=== PATIENT | female | born 1990 | race Caucasian/White ===

== ENCOUNTER 2019-03-06 16:47 | Emergency (ER) | payer MEDICAID ==
[~2019-03-06] VITALS: Ht 177.8 cm; Wt 104.5 kg
[~2019-03-06 16:47] MED LIST: BENZ1LOZ30 PO; CYCL-1 PO; ETON1VAG5 VG; HYDR-4383 PO; NAPR-1154 PO; ONDA8TAB9 PO
[2019-03-06] MEDS ORDERED: normal saline 1000ML IV soln IV ONE (17:35)
[2019-03-06] MEDS ORDERED: CefTRIAXone 2gm/D5W 50ml 50 ML IV ONE (17:35)
[2019-03-06 18:10] LABS: BASOPHILS % (AUTO) 0.2 % (0-1); EOSINOPHILS % (AUTO) 0.2 % (0-6); HEMATOCRIT 34.9 % (35.0-45.0); HEMOGLOBIN 11.9 g/dl (12.0-16.0); LYMPHOCYTES # (AUTO) 3.1 X10'3 (1.1-4.8); LYMPHOCYTES % (AUTO) 20.3 % (21-51); MEAN CORPUSCULAR HEMOGLOBIN 28.4 PG (27.0-31.0); MEAN CORPUSCULAR HGB CONC 34.2 g/dL (33.0-36.5); MEAN CORPUSCULAR VOLUME 83.2 FL (78-98); MEAN PLATELET VOLUME 9.2 FL (7.4-10.4); MONOCYTES # (AUTO) 0.8 X10'3 (0-0.9); MONOCYTES % (AUTO) 4.9 % (2-12); NEUTROPHILS # (AUTO) 11.5 X10'3 (1.8-7.7); NEUTROPHILS % (AUTO) 74.4 % (42-75); PLATELET COUNT 229 X10'3 (140-440); RED BLOOD COUNT 4.19 X10'6 (4.20-5.60); RED CELL DISTRIBUTION WIDTH 15.4 % (11.5-14.5); WHITE BLOOD COUNT 15.5 X10'3 (4.5-11.0)
[2019-03-06 18:26] LABS: PARTIAL THROMBOPLASTIN TIME 27 SECONDS (22-32)
[2019-03-06] MEDS ORDERED: ketorolac trometh. 30mg/ml inj. IV ONE (18:30)
[2019-03-06 18:34] LABS: ALANINE AMINOTRANSFERASE 52 U/L (12-78); ALBUMIN 3.8 G/DL (3.4-5.0); ALBUMIN/GLOBULIN RATIO 0.8 (1.1-1.5); ALKALINE PHOSPHATASE 78 IU/L (46-116); ANION GAP 13 (8-16); ASPARTATE AMINO TRANSFERASE 21 U/L (10-37); BILIRUBIN,TOTAL 0.3 MG/DL (0.1-1.0); BLOOD UREA NITROGEN 7 MG/DL (7-18); BUN/CREATININE RATIO 8.1 (6.6-38.0); CALCIUM 10.1 MG/DL (8.5-10.1); CHLORIDE 109 MMOL/L (99-107); CREATININE 0.86 MG/DL (0.40-0.90); GLUCOSE 96 MG/DL (70-104); POTASSIUM 3.9 MMOL/L (3.5-5.1); SODIUM 145 MMOL/L (135-145); TOTAL CARBON DIOXIDE 23.1 MMOL/L (24-32); TOTAL PROTEIN 8.6 G/DL (6.4-8.2); eGFR 78 ML/MIN
--- NOTE | 2019-03-06 18:48 | NUR ---
PER KHADRA HERRERA PT DOESN'T MEET CRITERIA FOR R/O MENNINGITIS DUE TO NEGATIVE H&P EXAM. DO TO LABS WE CAN GIVE 2L NS INSTEAD OF 3.5L NS.
[2019-03-06] MEDS ORDERED: CEPH250T PO (19:01)
[2019-03-06] MEDS ORDERED: ALBU6.7H9 INH (19:01)
[2019-03-06] MEDS ORDERED: PRED20TA PO (19:01)
[2019-03-06] MEDS ORDERED: BENZ-38 PO (19:01)
[2019-03-06 19:12] VITALS: BP 134/90
== END 2019-03-06 19:20 | disposition home or self-care (01) ==
LOC: ER 16:48
DX: J20.9 Acute bronchitis, unspecified (principal); G89.29 Other chronic pain; F10.99 Alcohol use, unspecified with unspecified alcohol-induced disorder; R79.1 Abnormal coagulation profile; Z98.890 Other specified postprocedural states; Z56.0 Unemployment, unspecified; Z88.5 Allergy status to narcotic agent; Z88.6 Allergy status to analgesic agent; Z79.899 Other long term (current) drug therapy; Y90.9 Presence of alcohol in blood, level not specified
CPT/HCPCS: 36415; 71045; 80053; 83605; 84145; 85025; 85610; 85730; 87040; 96365; 96375; 99284; J0696; J1885; J7030

== ENCOUNTER 2019-06-22 08:40 | Day surgery (SDC) | payer MEDICAID ==
[2019-06-19 11:54] LABS: BASOPHILS % (AUTO) 0.3 % (0-1); EOSINOPHILS # (AUTO) 0.1 X10'3 (0-0.9); LYMPHOCYTES # (AUTO) 4.2 X10'3 (1.1-4.8); LYMPHOCYTES % (AUTO) 40.7 % (21-51); MEAN CORPUSCULAR HEMOGLOBIN 28.4 PG (27.0-31.0); MEAN CORPUSCULAR HGB CONC 34.2 g/dL (33.0-36.5); MONOCYTES # (AUTO) 0.6 X10'3 (0-0.9); MONOCYTES % (AUTO) 5.5 % (2-12); NEUTROPHILS # (AUTO) 5.4 X10'3 (1.8-7.7); NEUTROPHILS % (AUTO) 52.5 % (42-75); PRE OP HEMATOCRIT 34.7 % (35.0-45.0); PRE OP HEMOGLOBIN 11.9 g/dL (12.0-16.0); PRE OP PLATELET COUNT 228 X10'3 (140-440); RED BLOOD COUNT 4.18 X10'6 (4.20-5.60); RED CELL DISTRIBUTION WIDTH 14.9 % (11.5-14.5)
[2019-06-19 12:09] LABS: HCG SERUM QL NEGATIVE
[2019-06-19 12:10] LABS: ALBUMIN 3.5 G/DL (3.4-5.0); ALBUMIN/GLOBULIN RATIO 0.9 (1.1-1.5); ALKALINE PHOSPHATASE 69 IU/L (46-116); BLOOD UREA NITROGEN 7 MG/DL (7-18); CALCIUM 8.6 MG/DL (8.5-10.1); CHLORIDE 107 MMOL/L (99-107); CREATININE 0.88 MG/DL (0.40-0.90); PRE OP ALT 62 U/L (30-65); PRE OP ANION GAP 9 (8-16); PRE OP AST 30 U/L (10-37); PRE OP BILIRUB, TOTAL 0.2 MG/DL (0.0-1.0); PRE OP GLUCOSE 102 MG/DL (70-104); PRE OP SODIUM 140 MMOL/L (135-145); TOTAL CARBON DIOXIDE 23.9 MMOL/L (24-32); TOTAL PROTEIN 7.3 G/DL (6.4-8.2); eGFR 76 ML/MIN
[~2019-06-22] VITALS: Ht 177.8 cm; Wt 122.0 kg
[2019-06-22] VITALS (11 sets, daily range): BP systolic 109–160; BP diastolic 58–79
[~2019-06-22 08:40] MED LIST changes: -BENZ1LOZ30 PO; -CYCL-1 PO; -ETON1VAG5 VG; -HYDR-4383 PO; -NAPR-1154 PO; +NO HOME MEDS; -ONDA8TAB9 PO; +famotidine 10mg tablet PO ONE; +ringers solution, lacted 1,000 ML IV SCH
[2019-06-22] MEDS ORDERED: BUPIVAcaine/PF 2.5 mg/ml (0.25%) 30ml vial ONE (09:30)
[2019-06-22] MEDS ORDERED: sevoflurane 250ml liquid IH ONE (10:21)
[2019-06-22] MEDS ORDERED: fentaNYL/PF 50MCG/1 ML 2ML syringe ONE ×2 (10:32→11:35)
[2019-06-22] MEDS ORDERED: midazolam 2 mg/2 ml injection ONE (10:32)
[2019-06-22] MEDS ORDERED: glycopyrrolate 0.2mg/ml inj ONE (11:21)
[2019-06-22] MEDS ORDERED: neostigmine methylsulfate 1 MG/ML 10ml vial ONE (11:21)
[2019-06-22] MEDS ORDERED: dexamethasone sod phosphate 4mg/ml inj. ONE (11:21)
[2019-06-22] MEDS ORDERED: propofol inj 20 ML IV ONE (11:21)
[2019-06-22] MEDS ORDERED: ondansetron/PF 4mg/2ml inj ONE (11:21)
[2019-06-22] MEDS ORDERED: rocuronium 10mg/ml inj IV ONE (11:21)
[2019-06-22] MEDS ORDERED: LIDOcaine 2% (20mg/ml) 5ml vial ONE (11:21)
--- NOTE | 2019-06-22 11:35 | NUR ---
Received from OR via [facility] , accompanied by Anesthesiologist DR WORKMAN and report given by Anesthesiolgist. PT DROWSY AND AROUSES EASILY. SKIN PINK AND WARM, PIV 20 GUAGE KENNEY PATENT RUNNING LR AT 100 ML/HR. ABDOMEN SOFT WITH 3 BANDAIDS CLEAN DRY AND INTACT. C/O PAIN OF 8.
[2019-06-22] MEDS ORDERED: morphine 4 MG/ML inj SYRINge IV PRN ×2 (11:45)
[2019-06-22] MEDS ORDERED: proCHLORperazine 10 MG/2 ml inj IV PRN (11:45)
[2019-06-22] MEDS ORDERED: meperidine/PF 25mg/ml syringe IV PRN ×2 (11:45)
[2019-06-22] MEDS ORDERED: ondansetron/PF 4mg/2ml inj IV PRN (11:45)
[2019-06-22] MEDS ORDERED: ringers solution, lacted 1,000 ML IV SCH (11:45)
[2019-06-22] MEDS ORDERED: morphine 4 MG/ML inj SYRINge ONE (11:53)
[2019-06-22] MEDS: meperidine/PF 25mg/ml syringe IV PRN ×2 (12:23→12:52)
--- NOTE | 2019-06-22 13:15 | NUR ---
PT DISCHARGED TO HOME IN PERSONAL VEHICLE TO UNCLE. OUT VIA WHEELCHAIR WITH PAIN CONTROLLED TO REASONABLE LEVEL, DRESSINGS DRY AND INTACT. ALL DISCHARGE INSTRUCTIONS GIVEN TO PATIENT, VERBALIZED UNDERSTANDING.LUCAS DESAI D/GEORGES CATHETER TIP INTACT Addendum: 06/22/19 at 1413 by Regina Dominique RN Amended: Links added.
== END 2019-06-22 13:15 | disposition home or self-care (01) ==
LOC: PAS 08:40
PROVIDERS: ATTEND Obstetrics & Gynecology
DX: Z30.2 Encounter for sterilization (principal); D64.9 Anemia, unspecified; G43.909 Migraine, unspecified, not intractable, without status migrainosus; M19.90 Unspecified osteoarthritis, unspecified site; E66.9 Obesity, unspecified; Z68.38 Body mass index [BMI] 38.0-38.9, adult; Z88.5 Allergy status to narcotic agent; Z91.018 Allergy to other foods; Z79.899 Other long term (current) drug therapy; Z98.890 Other specified postprocedural states
CPT/HCPCS: 36415; 58661; 80053; 82948; 84703; 85025; 86885; 86900; 86901; J1100; J2001; J2175; J2250; J2270; J2405; J2704; J2710; J3010; J3490; A4618; A6250; J7120

== ENCOUNTER 2019-08-31 19:17 | Emergency (ER) | payer MEDICAID ==
[~2019-08-31] VITALS: Ht 177.8 cm; Wt 107.1 kg
[~2019-08-31 19:17] MED LIST changes: -famotidine 10mg tablet PO ONE; -ringers solution, lacted 1,000 ML IV SCH
--- NOTE | 2019-08-31 19:39 | NUR ---
PT UNABLE TO GIVE URINE SAMPLE AT THIS TIME. WILL CONTINUE TO ENCOURAGE VOIDING.
[2019-08-31 19:53] LABS: BASOPHILS # (AUTO) 0.1 X10'3 (0-0.2); BASOPHILS % (AUTO) 0.5 % (0-1); EOSINOPHILS # (AUTO) 0.1 X10'3 (0-0.9); EOSINOPHILS % (AUTO) 0.7 % (0-6); HEMATOCRIT 33.8 % (35.0-45.0); HEMOGLOBIN 11.4 g/dl (12.0-16.0); LYMPHOCYTES # (AUTO) 4.7 X10'3 (1.1-4.8); LYMPHOCYTES % (AUTO) 36.1 % (21-51); MEAN CORPUSCULAR HEMOGLOBIN 29.2 PG (27.0-31.0); MEAN CORPUSCULAR HGB CONC 33.7 g/dL (33.0-36.5); MEAN CORPUSCULAR VOLUME 86.7 FL (78-98); MEAN PLATELET VOLUME 8.6 FL (7.4-10.4); MONOCYTES # (AUTO) 0.6 X10'3 (0-0.9); MONOCYTES % (AUTO) 4.4 % (2-12); NEUTROPHILS # (AUTO) 7.6 X10'3 (1.8-7.7); NEUTROPHILS % (AUTO) 58.3 % (42-75); PLATELET COUNT 247 X10'3 (140-440); RED CELL DISTRIBUTION WIDTH 15.7 % (11.5-14.5)
[2019-08-31 20:06] LABS: ALANINE AMINOTRANSFERASE 57 U/L (12-78); ALBUMIN 3.6 G/DL (3.4-5.0); ALBUMIN/GLOBULIN RATIO 0.9 (1.1-1.5); ALKALINE PHOSPHATASE 80 IU/L (46-116); ANION GAP 9 (8-16); ASPARTATE AMINO TRANSFERASE 32 U/L (10-37); BILIRUBIN,TOTAL 0.4 MG/DL (0.1-1.0); BLOOD UREA NITROGEN 13 MG/DL (7-18); BUN/CREATININE RATIO 11.1 (6.6-38.0); CHLORIDE 102 MMOL/L (99-107); CREATININE 1.17 MG/DL (0.40-0.90); GLUCOSE 97 MG/DL (70-104); LIPASE 72 U/L (73-393); POTASSIUM 3.6 MMOL/L (3.5-5.1); SODIUM 140 MMOL/L (135-145); TOTAL CARBON DIOXIDE 29.5 MMOL/L (24-32); TOTAL PROTEIN 7.8 G/DL (6.4-8.2); eGFR 55 ML/MIN
[2019-08-31] MEDS ORDERED: normal saline 1000ML IV soln IVB ONE (20:30)
[2019-08-31] MEDS ORDERED: ondansetron/PF 4mg/2ml inj IV ONE (20:30)
[2019-08-31] MEDS: morphine 2 MG/ML inj. syringe IV PRN ×2 (20:44→22:09)
[2019-08-31] MEDS ORDERED: proCHLORperazine 10 MG/2 ml inj IM ONE (21:45)
[2019-08-31] MEDS ORDERED: ketorolac tromethamine 15mg/ml inj. IV ONE (21:45)
[2019-08-31 22:09] LABS: CLARITY,URINE CLEAR (Clear); COLOR,URINE YELLOW (Yellow); GLUCOSE, URINE NEGATIVE (Neg); KETONES,URINE NEGATIVE (Neg); LEUKOCYTE ESTERASE ,URINE NEGATIVE (Neg); NITRITES, URINE NEGATIVE (Neg); OCCULT BLOOD,URINE NEGATIVE (Neg); PH,URINE 6.5 (4.8-8.0); PROTEIN,URINE NEGATIVE (Neg); URINE HCG NEGATIVE (NEG); UROBILINOGEN,URINE 0.2 E.U/dL (0.2-1.0)
[2019-08-31 22:10] LABS: UA COLLECTION TYPE CLN CATCH MIDSTREAM
[2019-08-31 22:13] VITALS: BP 131/83
[2019-08-31] MEDS ORDERED: MAGN296S70 PO (22:23)
== END 2019-08-31 22:34 | disposition home or self-care (01) ==
LOC: ER 19:17
DX: K59.00 Constipation, unspecified (principal); R10.31 Right lower quadrant pain; E66.9 Obesity, unspecified; G89.29 Other chronic pain; Z56.0 Unemployment, unspecified; Z98.890 Other specified postprocedural states; Z88.5 Allergy status to narcotic agent; Z88.6 Allergy status to analgesic agent
CPT/HCPCS: 36415; 74176; 80053; 81003; 81025; 83690; 85025; 96372; 96374; 96375; 96376; 99285; J0780; J1885; J2270; J2405; J7030

== ENCOUNTER 2020-03-24 16:25 | Emergency (ER) | payer MEDICAID ==
[~2020-03-24] VITALS: Ht 177.8 cm; Wt 125.0 kg
[~2020-03-24 16:25] MED LIST changes: +MAGN296S70 PO
[2020-03-24 16:34] VITALS: BP 155/111
[2020-03-24] MEDS ORDERED: proparacaine 0.5% ophthalmic drops 15ml EACHEYE ONE (17:05)
== END 2020-03-24 18:12 | disposition home or self-care (01) ==
LOC: ER 16:26
DX: H57.12 Ocular pain, left eye (principal); G89.29 Other chronic pain; Z87.81 Personal history of (healed) traumatic fracture; Z56.0 Unemployment, unspecified
CPT/HCPCS: 99282

== ENCOUNTER 2020-06-12 17:13 | Emergency (ER) | payer MEDICAID ==
[~2020-06-12] VITALS: Ht 177.8 cm; Wt 118.4 kg
[2020-06-12 18:02] VITALS: BP 165/90
[2020-06-12] MEDS ORDERED: ketorolac trometh inj. 60 MG/2 ML VIAL IM ONE (18:10)
[2020-06-12] MEDS ORDERED: HYDROcodone/acetaminophen 10/325mg tab PO ONE (18:10)
== END 2020-06-12 20:03 | disposition home or self-care (01) ==
LOC: ER 17:13
DX: S63.502A Unspecified sprain of left wrist, initial encounter (principal); M25.532 Pain in left wrist; G89.29 Other chronic pain; Z98.890 Other specified postprocedural states; Z72.89 Other problems related to lifestyle; Z56.0 Unemployment, unspecified; Z88.8 Allergy status to other drugs, medicaments and biological substances; Z88.6 Allergy status to analgesic agent; Z79.899 Other long term (current) drug therapy; W18.39XA Other fall on same level, initial encounter; Y93.89 Activity, other specified; Y92.89 Other specified places as the place of occurrence of the external cause; Y99.8 Other external cause status
CPT/HCPCS: 29125; 73110; 96372; 99283; J1885

== ENCOUNTER 2020-06-13 09:24 | Emergency (ER) | payer MEDICAID ==
[~2020-06-13] VITALS: Ht 177.8 cm; Wt 118.6 kg
--- NOTE | 2020-06-13 09:55 | NUR ---
Pt seen, assessed, and treated by provider prior to block inspector. See MSE notes.
== END 2020-06-13 09:56 | disposition home or self-care (01) ==
LOC: ER 09:25
DX: S63.502A Unspecified sprain of left wrist, initial encounter (principal); M25.532 Pain in left wrist; G89.29 Other chronic pain; Z98.890 Other specified postprocedural states; Z72.89 Other problems related to lifestyle; Z56.0 Unemployment, unspecified; Z88.8 Allergy status to other drugs, medicaments and biological substances; Z88.6 Allergy status to analgesic agent; Z79.899 Other long term (current) drug therapy; W19.XXXA Unspecified fall, initial encounter; Y93.89 Activity, other specified; Y92.89 Other specified places as the place of occurrence of the external cause; Y99.8 Other external cause status
CPT/HCPCS: 29125; 99283

== ENCOUNTER 2020-12-10 10:50 | Emergency (ER) | payer MEDICAID ==
[~2020-12-10] VITALS: Ht 177.8 cm; Wt 109.0 kg
[2020-12-10 10:51] VITALS: BP 143/75
== END 2020-12-10 13:00 | disposition home or self-care (01) ==
LOC: ER 10:51
DX: M94.0 Chondrocostal junction syndrome [Tietze] (principal); J04.0 Acute laryngitis; G89.29 Other chronic pain; Z87.81 Personal history of (healed) traumatic fracture; Z98.890 Other specified postprocedural states; Z72.89 Other problems related to lifestyle; Z56.0 Unemployment, unspecified; Z79.899 Other long term (current) drug therapy; Z88.8 Allergy status to other drugs, medicaments and biological substances
CPT/HCPCS: 71045; 99283

== ENCOUNTER 2021-07-15 17:55 | Emergency (ER) | payer MEDICAID ==
[~2021-07-15] VITALS: Ht 177.8 cm; Wt 100.5 kg
[~2021-07-15 17:55] MED LIST changes: +LIDOcaine 1% 30ml preserv. free vial ONE
[2021-07-15 18:28] VITALS: BP 150/109
[2021-07-15] MEDS ORDERED: rabies vaccine (PCEC)/PF 2.5 unit kit IMVAC ONE (19:35)
[2021-07-15] MEDS ORDERED: TETanus/Pertussis (Acell)/Diphther VAC/PF (Tdap-Adult) 0.5ml syringe IMVAC ONE (19:35)
[2021-07-15] MEDS ORDERED: AMOX-117 PO (19:45)
[2021-07-15] MEDS ORDERED: ibuprofen tablet 400 MG TABLET PO ONE (21:20)
--- NOTE | 2021-07-15 21:22 | NUR ---
6 sutures placed by kiersten.
== END 2021-07-15 21:35 | disposition home or self-care (01) ==
LOC: ER 17:56
DX: S01.311A Laceration without foreign body of right ear, initial encounter (principal); G89.29 Other chronic pain; F17.200 Nicotine dependence, unspecified, uncomplicated; Z56.0 Unemployment, unspecified; Z98.890 Other specified postprocedural states; Z88.8 Allergy status to other drugs, medicaments and biological substances; Z79.2 Long term (current) use of antibiotics; Z20.3 Contact with and (suspected) exposure to rabies; Z79.899 Other long term (current) drug therapy; W54.0XXA Bitten by dog, initial encounter; Y93.89 Activity, other specified; Y92.89 Other specified places as the place of occurrence of the external cause; Y99.8 Other external cause status
CPT/HCPCS: 12011; 90471; 90472; 90675; 99284; J3490

== ENCOUNTER 2021-07-18 11:01 | Emergency (ER) | payer MEDICAID ==
[~2021-07-18] VITALS: Ht 177.8 cm; Wt 100.0 kg
[~2021-07-18 11:01] MED LIST changes: +AMOX-117 PO; -LIDOcaine 1% 30ml preserv. free vial ONE
[2021-07-18 11:20] VITALS: BP 130/76
[2021-07-18] MEDS ORDERED: rabies vaccine (PCEC)/PF 2.5 unit kit IMVAC ONE (11:25)
[2021-07-18] MEDS ORDERED: ACET-3068 PO (11:52)
== END 2021-07-18 12:11 | disposition home or self-care (01) ==
LOC: ER 11:01
DX: S00.80XA Unspecified superficial injury of other part of head, initial encounter (principal); R51.9 Headache, unspecified; Z20.3 Contact with and (suspected) exposure to rabies; Z23 Encounter for immunization; G89.29 Other chronic pain; Z98.890 Other specified postprocedural states; Z56.0 Unemployment, unspecified; Z88.8 Allergy status to other drugs, medicaments and biological substances; Z88.6 Allergy status to analgesic agent; Z79.2 Long term (current) use of antibiotics; Z79.899 Other long term (current) drug therapy; X58.XXXA Exposure to other specified factors, initial encounter; Y93.89 Activity, other specified; Y92.89 Other specified places as the place of occurrence of the external cause; Y99.8 Other external cause status
CPT/HCPCS: 90471; 90675; 99283

== ENCOUNTER 2021-07-22 11:11 | Emergency (ER) | payer MEDICAID ==
[~2021-07-22] VITALS: Ht 177.8 cm; Wt 100.0 kg
[~2021-07-22 11:11] MED LIST changes: +ACET-3068 PO
[2021-07-22 11:28] VITALS: BP 149/81
== END 2021-07-22 13:29 | disposition left against medical advice (07) ==
LOC: ER 11:12
DX: R51.9 Headache, unspecified (principal); Z53.21 Procedure and treatment not carried out due to patient leaving prior to being seen by health care provider

== ENCOUNTER 2021-11-03 22:11 | Emergency (ER) | payer MEDICAID, OTHER ==
[~2021-11-03] VITALS: Ht 177.8 cm; Wt 100.0 kg
[~2021-11-03 22:11] MED LIST changes: -ACET-3068 PO; -AMOX-117 PO
[2021-11-03] MEDS ORDERED: celeCOXIB 100mg capsule PO SCH (23:55)
[2021-11-04] MEDS ORDERED: CELE-193 PO
== END 2021-11-04 00:18 | disposition home or self-care (01) ==
LOC: ER 22:12
DX: S90.31XA Contusion of right foot, initial encounter (principal); M79.671 Pain in right foot; G89.29 Other chronic pain; Z98.890 Other specified postprocedural states; Z72.89 Other problems related to lifestyle; Z56.0 Unemployment, unspecified; Z88.8 Allergy status to other drugs, medicaments and biological substances; Z88.6 Allergy status to analgesic agent; Z79.899 Other long term (current) drug therapy; X58.XXXA Exposure to other specified factors, initial encounter; Y93.89 Activity, other specified; Y92.89 Other specified places as the place of occurrence of the external cause; Y99.8 Other external cause status
CPT/HCPCS: 73630; 99283

== ENCOUNTER 2022-02-17 12:52 | Emergency (ER) | payer MEDICAID, OTHER ==
[~2022-02-17] VITALS: Ht 175.3 cm; Wt 100.0 kg
[2022-02-17 13:48] LABS: URINE HCG NEGATIVE (NEG)
[2022-02-17 13:48] LABS: BASOPHILS % (AUTO) 0.1 % (0-1); EOSINOPHILS % (AUTO) 0.4 % (0-6); HEMATOCRIT 37.3 % (35.0-45.0); HEMOGLOBIN 12.8 g/dl (12.0-16.0); LYMPHOCYTES % (AUTO) 23.4 % (21-51); MEAN CORPUSCULAR HEMOGLOBIN 30.9 PG (27.0-31.0); MEAN CORPUSCULAR HGB CONC 34.4 g/dL (33.0-36.5); MEAN CORPUSCULAR VOLUME 89.9 FL (78-98); MEAN PLATELET VOLUME 9.2 FL (7.4-10.4); MONOCYTES # (AUTO) 0.6 X10'3 (0-0.9); MONOCYTES % (AUTO) 4.4 % (2-12); NEUTROPHILS # (AUTO) 9.3 X10'3 (1.8-7.7); NEUTROPHILS % (AUTO) 71.7 % (42-75); PLATELET COUNT 218 X10'3 (140-440); RED BLOOD COUNT 4.15 X10'6 (4.20-5.60); RED CELL DISTRIBUTION WIDTH 13.6 % (11.5-14.5)
[2022-02-17 14:01] LABS: CLARITY,URINE SLIGHTLY CLOUDY (Clear); COLOR,URINE YELLOW (Yellow); GLUCOSE, URINE NEGATIVE (Neg); KETONES,URINE NEGATIVE (Neg); LEUKOCYTE ESTERASE ,URINE NEGATIVE (Neg); NITRITES, URINE NEGATIVE (Neg); OCCULT BLOOD,URINE SMALL (Neg); PH,URINE 6.5 (4.8-8.0); PROTEIN,URINE NEGATIVE (Neg); UROBILINOGEN,URINE 0.2 E.U/dL (0.2-1.0)
[2022-02-17 14:01] LABS: ALANINE AMINOTRANSFERASE 30 U/L (12-78); ALBUMIN 3.8 G/DL (3.4-5.0); ALKALINE PHOSPHATASE 46 IU/L (46-116); ANION GAP 13 (8-16); ASPARTATE AMINO TRANSFERASE 17 U/L (10-37); BILIRUBIN,TOTAL 0.3 MG/DL (0.1-1.0); BLOOD UREA NITROGEN 11 MG/DL (7-18); BUN/CREATININE RATIO 12.4 (6.6-38.0); CALCIUM 9.1 MG/DL (8.5-10.1); CHLORIDE 102 MMOL/L (99-107); CREATININE 0.89 MG/DL (0.40-0.90); GLUCOSE 96 MG/DL (70-104); LIPASE 75 U/L (73-393); POTASSIUM 3.9 MMOL/L (3.5-5.1); SODIUM 141 MMOL/L (135-145); TOTAL CARBON DIOXIDE 25.9 MMOL/L (24-32); TOTAL PROTEIN 7.7 G/DL (6.4-8.2); eGFR 74 ML/MIN
[2022-02-17 14:04] LABS: UA COLLECTION TYPE CLN CATCH MIDSTREAM
[2022-02-17 14:08] LABS: BACTERIA,URINE 1+ /HPF (Neg); RBC,URINE 0-2 /HPF (0-2)
[2022-02-17 14:09] LABS: MUCUS STRANDS FEW /LPF (Neg); RENAL CELLS, URINE FEW /HPF; SQUAMOUS EPITHELIAL CELL,UR MANY /LPF (FEW)
[2022-02-17] MEDS ORDERED: ketorolac trometh. 30mg/ml inj. IM ONE (14:25)
[2022-02-17] MEDS ORDERED: ondansetron 4mg rapidly disintigrating tab PO ONE ×2 (14:25→17:20)
--- NOTE | 2022-02-17 16:45 | NUR ---
BEDSIDE US COMPLETED AT BEDSIDE BY TECH. OSMEL SALAZAR
[2022-02-17] MEDS ORDERED: MELO-102 PO (16:46)
[2022-02-17 16:54] VITALS: BP 131/80
[2022-02-17] MEDS ORDERED: oxyCODONE IR 5mg (immed. release) tablet PO ONE (17:20)
[2022-02-17] MEDS ORDERED: OXYC-658 PO (17:27)
== END 2022-02-17 17:55 | disposition home or self-care (01) ==
LOC: ER 12:52
DX: R10.32 Left lower quadrant pain (principal); M25.552 Pain in left hip; G89.29 Other chronic pain; Z98.890 Other specified postprocedural states; Z72.89 Other problems related to lifestyle; Z56.0 Unemployment, unspecified; Z88.6 Allergy status to analgesic agent; Z79.899 Other long term (current) drug therapy
CPT/HCPCS: 36415; 76830; 76856; 80053; 81001; 81025; 83690; 85025; 93976; 96372; 99284; J1885

== ENCOUNTER 2023-09-19 15:54 | Emergency (ER) | payer MEDICAID, OTHER ==
[~2023-09-19] VITALS: Ht 177.8 cm; Wt 115.8 kg
[~2023-09-19 15:54] MED LIST changes: -MAGN296S70 PO; +MAGN296S89 PO; +MELO-102 PO
[2023-09-19 15:57] VITALS: BP 187/101; PULSE 108; TEMP 99; O2SAT 95
[2023-09-19] MEDS ORDERED: CYCL-1 PO (16:44)
[2023-09-19] MEDS ORDERED: NAPR-56 PO (16:44)
[2023-09-19 16:51] VITALS: RESP 16
[2023-09-19] MEDS: ketorolac tromethamine 15mg/ml inj. IM ONE (16:51)
== END 2023-09-19 16:52 | disposition home or self-care (01) ==
LOC: ER 15:54
DX: M54.2 Cervicalgia (principal); Z88.5 Allergy status to narcotic agent; Z91.018 Allergy to other foods; Z79.899 Other long term (current) drug therapy; Z79.2 Long term (current) use of antibiotics; V89.2XXA Person injured in unspecified motor-vehicle accident, traffic, initial encounter; Y93.89 Activity, other specified; Y92.89 Other specified places as the place of occurrence of the external cause; Y99.8 Other external cause status
CPT/HCPCS: 96372; 99283; J1885

== ENCOUNTER 2024-08-24 19:23 | Emergency (ER) | payer MEDICAID ==
[~2024-08-24] VITALS: Ht 177.8 cm; Wt 100.0 kg
[~2024-08-24 19:23] MED LIST changes: +CYCL-1 PO
== END 2024-08-24 20:42 | disposition home or self-care (01) ==
LOC: ER 19:24
DX: S61.011A Laceration without foreign body of right thumb without damage to nail, initial encounter (principal); G89.29 Other chronic pain; Z88.5 Allergy status to narcotic agent; Z79.899 Other long term (current) drug therapy; Z56.0 Unemployment, unspecified; Z98.890 Other specified postprocedural states; W26.0XXA Contact with knife, initial encounter; Y93.89 Activity, other specified; Y92.89 Other specified places as the place of occurrence of the external cause; Y99.8 Other external cause status
CPT/HCPCS: 12001; 99282; A6258

== ENCOUNTER 2024-11-13 20:13 | Emergency (ER) | payer MEDICAID ==
[~2024-11-13] VITALS: Ht 177.8 cm; Wt 111.5 kg
--- NOTE | 2024-11-13 20:53 | RADIOLOGY REPORT ---
EXAM: DI WRIST, COMPLETE (3VW MIN) CLINICAL INDICATION: WRIST PAIN RIGHT TECHNIQUE: DI WRIST, COMPLETE (3VW MIN) Comparison: None FINDINGS/IMPRESSION: There is no evidence of acute fracture or dislocation. The visualized joint space is well maintained. The alignment is anatomical. There is no radiopaque foreign body.
[2024-11-13] MEDS: acetaminophen 1,000mg/100ml IV 100 ML IV ONE (21:55)
[2024-11-13] MEDS ORDERED: morphine 4 MG/ML inj SYRINge IV ONE (22:30)
--- NOTE | 2024-11-13 23:01 | Physician Documentation ---
History of Present Illness ~ Chief Complaint: Wrist pain Stated Complaint: WRIST PAIN Time Seen by MD: 21:29 Primary Medical Doctor: [facility] HPI This 34-year-old female presents with right wrist and forearm pain after throwing a bowling ball yesterday, patient reports she felt a pop with pain radiating down her entire right forearm into her fingers. Patient reports no other injuries or acute symptoms or concerns. Patient reports previous fracture to right wrist. Patient reports pain was not well controlled with ibuprofen [id number]. Tetanus within 5 years: Yes Medication Reconciliation Allergies: Uncoded Allergies: PEACHES (Allergy, Severe, RASH, THROAT CLOSES, 06/19/19) Scheduled Cyclobenzaprine* (Cyclobenzaprine*), 1 TAB PO TID Magnesium Citrate (Magnesium Citrate), 296 ML PO ONCE Meloxicam (Meloxicam), 1 TAB PO DAILY Miscellaneous Medications Home Med List (No Home Medications), (Reported) Past Medical History Past Medical History: *RENAL/*, Chronic Pain, Extremity Fracture Past Surgical History: orthopedic surgeries Alcohol Use: Occasionally Drug Use: none Lives with: Spouse, Family Lives In: Home Occupation: unemployed Review of Systems ROS Right wrist pain as stated above in the HPI, otherwise all systems are reviewed and negative. Physical Exam Vital Signs: Temperature: 98.2, Source: Temporal, Heart Rate: 89, Respiratory R ate: 18, BP: 144/89, Pulse Oximetry: 99, Weight: 111.500 Oxygen Flow Rate: 0 Physical Exam VITALS: Reviewed and as above. GENERAL: Alert, nontoxic appearing, no apparent distress. RESPIRATORY: No increased work of breathing, no respiratory distress, speaking in full clear sentences MUSCULOSKELETAL: Right wrist and forearm; tender to palpation. No swelling, no deformity, no ecchymosis,, sensation intact, brisk capillary refill in fingers, strong radial pulse Progress Results/Orders Results/Orders Completed Orders - GUERA ARELLANO Acetaminophen 1,000mg/100ml Iv (Ofirmev (11/13/24 21:30) Morphine 4mg/Ml Inj. (Morphine Inj.) (11/13/24 22:30) Ondansetron Inj. (Zofran 4mg/2ml Vial) (11/13/24 22:30) Medications Received in ER Medications (Trade) Dose Ordered Sig/Kiara Route PRN Reason Start Time Stop Time Status Last Admin Dose Admin Acetaminophen 100 ml @ 400 mls/hr ONCE ONCE IV 11/13/24 21:30 11/13/24 21:44 DC 11/13/24 21:55 400 MLS/HR Vital Signs 11/13/24 11/13/24 20:37 23:10 Temp 98.2 98.6 Pulse 89 86 Resp 18 18 B/P (MAP) 144/89 140/86 Pulse Ox 99 99 O2 Flow Rate 0 EKG/XRAY/CT/US/VASC/MRI Bone/Soft Tissue X-Ray (Ext.) : Additional Comment EXAM: DI WRIST, COMPLETE (3VW MIN) CLINICAL INDICATION: WRIST PAIN RIGHT TECHNIQUE: DI WRIST, COMPLETE (3VW MIN) Comparison: None FINDINGS/IMPRESSION: There is no evidence of acute fracture or dislocation. The visualized joint space is well maintained. The alignment is anatomical. There is no radiopaque foreign body. Electronically Signed by:TREVOR CHRISTIANSON MD Date & Time: 11/13/242050 Dictated by: TREVOR CHRISTIANSON MD Dictation date and time: 11/13/242050 I have reviewed and agree with the radiology report. I have reviewed and interpreted the imaging as: No fracture or dislocation Medical Decision Making Findings 34-year-old female presented with pain to her right forearm and wrist radiating into fingertips following throwing a bowling ball yesterday, patient presented in a splint from home which she reported did help her pain. Patient reported that home medications were not helping with the pain though review of cures did demonstrate patient has active prescription for [place] which she reports has not taken for this pain yet, as patient did not report adequate pain control with ibuprofen or Tylenol she will be advised to utilize her previously prescribed N orco for pain control. It is reassuring that there appears to be no physical signs of injury to the forearm with no swelling, ecchymosis, erythema, or deformity, and x-ray did not demonstrate evidence of fracture or dislocation. Reassuring that the limb is neurovascularly intact and range of motion intact in joints of right limb. Remainder of physical exam was benign and vital signs stable patient is appropriate for outpatient follow up. Wrist Diff Dx:Considerations: Include: Abrasion, Arthritis, DJD, Gout, Rheumatoid, Septic, Carpal tunnel snydrome, Contusion, Dislocation, Fracture- carpal, Fracture-radius, Fracture-ulna, Ganglion, Laceration, Neurovascular injury, Strain, Other (Drug-seeking behavior) Departure Disposition: 01 HOME / SELF CARE / HOMELESS Impression: Primary Impression: Right forearm pain Condition: Improved Discharge Instructions: Wrist Pain, Adult Additional Instructions: Continue to wear the wrist splint for comfort, please take your previously prescribed [place] for pain. Please follow up with your primary care provider in the next few days further evaluation of your injury and referral to physical therapy, please see your primary care provider for any pain medication changes. Please return to the emergency department for any new or worsening concerning symptoms. Referrals: NO PRIMARY CARE PROVIDER (PCP) Education Educated: Patient Educated regarding: diagnosis, treatment, prognosis, need for follow up Signature Scribe Signature: No scribe Attestation: The note accurately reflects work and decisions made by me.ALEXA Mcgraw 11/14/24 02:11 GUERA ARELLANO Nov 13, 2024 23:00
[2024-11-13] MEDS: ondansetron/PF 4mg/2ml inj IV PRN (23:09)
[2024-11-13 23:10] VITALS: BP 140/86; PULSE 86; RESP 18; TEMP 98.6; O2SAT 99
== END 2024-11-13 23:11 | disposition home or self-care (01) ==
LOC: ER 20:14
DX: M25.531 Pain in right wrist (principal); Z79.899 Other long term (current) drug therapy; Z56.0 Unemployment, unspecified; Z72.89 Other problems related to lifestyle; X58.XXXA Exposure to other specified factors, initial encounter; Y93.89 Activity, other specified; Y92.89 Other specified places as the place of occurrence of the external cause; Y99.8 Other external cause status
CPT/HCPCS: 73110; 96365; 99284; J0131

== ENCOUNTER 2025-05-21 16:18 | Emergency (ER) | payer MEDICAID ==
[~2025-05-21] VITALS: Ht 175.3 cm; Wt 100.0 kg
--- NOTE | 2025-05-21 16:47 | RADIOLOGY REPORT ---
CHEST RADIOGRAPH INDICATION: LEFT SIDED RIB AND BACK PAIN AFTER A FALL 2 DAYS AGO TECHNIQUE: Single frontal view of the chest with 3 views of the left ribs available for evaluation. COMPARISON: None FINDINGS: Lines and Tubes: None Lungs: No focal consolidation. Pleura: No effusion. No pneumothorax. Cardiomediastinal contours: Unremarkable Bones: No acute osseous abnormality. IMPRESSION: No acute cardiopulmonary disease. No acute rib fractures.
--- NOTE | 2025-05-21 17:47 | Physician Documentation ---
History of Present Illness ~ Chief Complaint: Mechanical Fall Stated Complaint: BACK PAIN FROM FALL Time Seen by MD: 18:01 Primary Medical Doctor: [facility] HPI This is a 35-year-old female who presents with left-sided upper back pain after a mechanical slip and fall striking her upper back two days prior, patient reports pain is worse when breathing. Reports no loss of consciousness and no blood thinners. Tetanus within 5 Years?: Yes Medication Reconciliation Allergies: Uncoded Allergies: PEACHES (Allergy, Severe, RASH, THROAT CLOSES, 06/19/19) Scheduled Cyclobenzaprine* (Cyclobenzaprine*), 1 TAB PO TID Magnesium Citrate (Magnesium Citrate), 296 ML PO ONCE Meloxicam (Meloxicam), 1 TAB PO DAILY Miscellaneous Medications Home Med List (No Home Medications), (Reported) Past Medical History Past Medical History: *RENAL/*, Chronic Pain, Extremity Fracture Past Surgical History: orthopedic surgeries Alcohol Use: Occasionally Drug Use: none Lives with: Spouse, Family Lives In: Home Occupation: unemployed Review of Systems ROS As stated above in the HPI, otherwise all systems are reviewed and negative. Physical Exam Vital Signs: Temperature: 98.4, Source: Temporal, Heart Rate: 82, Respiratory Rate: 18, BP: 135/84, Pulse Oximetry: 99, Weight: 100.000 Oxygen Flow Rate: 0 Physical Exam VITALS: Reviewed and as above. GENERAL: Alert, nontoxic appearing, no apparent distress. HEENT: RESPIRATORY: No increased work of breathing, no respiratory distress, speaking in full clear sentences CHEST: CV: BACK: GI: MUSCULOSKELETAL: SKIN: NEURO: PSYCH: Respiratory: lungs clear, normal breath sounds, no respiratory distress Respiratory To inspection of the chest wall with the patient points to the left mid to upper back as area of pain. There is a contusion in his area that has tender to palpation. No obvious underlying bony crepitus or deformity. The lungs are clear to auscultation all perez. Progress Results/Orders Results/Orders Vital Signs 05/21/25 16:20 Temp 98.4 Pulse 82 Resp 18 B/P (MAP) 135/84 Pulse Ox 99 O2 Flow Rate 0 Medical Decision Making Additional information obtaine: N/A Findings Left rib series with AP chest did not show evidence of fracture or pneumothorax. I will prescribe the patient has some [place] for pain and to help with sleep a muscle relaxant. She should apply cold compresses to the area and rest. Follow up with the primary care physician for recheck in the next one or two days and return to the ER for any worsening or concerning symptoms. Differential Dx:Considerations: Include: Closed head injury, Cardiac injury, Fracture(s), Intraabdominal injury, Pneumothorax, Cerebral contusion, Pulmonary contusion, Spine injury, Tracheal injury, Urological injury, Vascular injury, Abrasion(s), Contusion(s), Foreign body(s), Hematoma(s), Laceration(s), Encephalopathy, Other Additional Comment Chest wall contusion. Rib fracture. Pneumothorax. Hemothorax. Departure Disposition: HOME / SELF CARE / HOMELESS Impression: Primary Impression: Chest wall contusion Condition: Stable Discharge Instructions: Chest Wall Pain Additional Instructions: Apply cold compresses to all the area for 20 minutes every 2 hours for the 1st few days. Rest and try not to do any activities that is may worsen your chest wall pain. Take the medication in his needed. Follow up with the primary care physician for recheck in the next one or two days and return to the ER for any worsening or concerning symptoms. Referrals: NO PRIMARY CARE PROVIDER (PCP) Prescriptions Methocarbamol (Methocarbamol) 750 Mg Tablet 1 TAB PO Q8H for Musculoskeletal pain, #20 TAB 0 Refills Prov: YOVANY SAMUEL 05/21/25 Hydrocodone Bit/Acetaminophen (Hydrocodon-Acetaminophn 10-325 tablet) 10mg- 325mg Tablet 1 TABLET PO Q4H PRN for moderate or severe pain 4-10, #20 TABLET Prov: YOVANY SAMUEL 05/21/25 Signature Scribe Signature: No scribe Attestation: The note accurately reflects work and decisions made by me.Yovany GAVIRIA 05/21/25 18:24 GUERA ARELLANO May 21, 2025 17:47 YOVANY SAMUEL May 21, 2025 18:22
[2025-05-21] MEDS ORDERED: HYDR-3972 PO (18:22)
[2025-05-21] MEDS ORDERED: METH-798 PO (18:22)
[2025-05-21] MEDS: HYDROcodone/acetaminophen 5mg/325mg tablet PO ONE (18:58)
[2025-05-21 19:02] VITALS: BP 134/83; PULSE 80; RESP 18; TEMP 98.6; O2SAT 99
== END 2025-05-21 19:03 | disposition home or self-care (01) ==
LOC: ER 16:19
DX: S20.212A Contusion of left front wall of thorax, initial encounter (principal); G89.29 Other chronic pain; Z79.899 Other long term (current) drug therapy; Z56.0 Unemployment, unspecified; Z98.890 Other specified postprocedural states; Z72.89 Other problems related to lifestyle; W01.10XA Fall on same level from slipping, tripping and stumbling with subsequent striking against unspecified object, initial encounter; Y93.89 Activity, other specified; Y92.89 Other specified places as the place of occurrence of the external cause; Y99.8 Other external cause status
CPT/HCPCS: 71100; 99283